=== PATIENT | male | born 1965 ===

== ENCOUNTER 2022-12-31 03:43 | Emergency (ER) | payer OTHER ==
[~2022-12-31] VITALS: Ht 167.6 cm; Wt 93.5 kg
[2022-12-31 04:40] LABS: Basophils # (auto) 0.1 10 ^3/uL (0-0.2); Eosinophils # (auto) 0.2 10 ^3/uL (0-0.8); Eosinophils % (auto) 2.3 % (0.0-7.0); Hematocrit 44.7 % (41.0-53.0); Hemoglobin 14.7 g/dL (13.5-17.5); Lymphocytes # (auto) 2.2 10 ^3/uL (0.4-5.4); Lymphocytes % (auto) 28.2 % (10.0-50.0); Mean Corpuscular Hemoglobin 30.4 pg (28.0-32.0); Mean Corpuscular Volume 92.2 fL (80.0-100.0); Monocytes # (auto) 0.8 10 ^3/uL (0-1.3); Neutrophils # (auto) 4.5 10 ^3/uL (1.6-8.6); Neutrophils % (auto) 58.5 % (37.0-80.0); Nucleated Red Blood Cells % 0.2 %; Red Blood Cells 4.85 10^6/uL (4.5-5.90); Red Cell Distribution Width 13.2 % (11.8-14.3); White Blood Cell 7.7 10^3/uL (4.4-10.8)
[2022-12-31 05:02] LABS: Albumin 3.7 g/dL (3.4-5.0); BUN/Creatinine Ratio 18.2 (10.0-20.0); Calcium 9.1 mg/dL (8.5-10.1)
[2022-12-31 05:05] LABS: Bilirubin, Total 0.2 mg/dL (0.2-1.0); Total Protein 7.7 g/dL (6.4-8.2)
[2022-12-31] MEDS ORDERED: SODIUM CHLORIDE 0.9% 1,000 ML IV ONE (06:30)
[2022-12-31] MEDS ORDERED: MAALOX PLUS or MAALOX 30 ML PO ONE (07:00)
[2022-12-31 08:49] LABS: Urine Bacteria NONE SEEN /hpf (None Seen); Urine Blood Negative /uL (Negative); Urine Specific Gravity 1.005 (1.001-1.035); Urine WBC <1 /hpf (0 - 3)
[2022-12-31] MEDS: KETOROLAC TROMETH 30 MG/ML 1ML VIAL IV ONE ×2 (09:00→09:11)
[2022-12-31] MEDS ORDERED: PANTOPRAZOLE 40 MG/10 ML VIAL INJ IV ONE (10:15)
[2022-12-31 10:37] VITALS: BP 133/79
== END 2022-12-31 10:36 | disposition home or self-care (01) ==
LOC: EDBD 03:43 → ER 03:43
DX: K29.70 Gastritis, unspecified, without bleeding (principal); I10 Essential (primary) hypertension; E11.9 Type 2 diabetes mellitus without complications
CPT/HCPCS: 36415; 71045; 80053; 81001; 83690; 84484; 85025; 93005; 96361; 96374; 99285; C9113; J1885; J7030